=== PATIENT | male | born 1960 | race African-American/Black ===

== ENCOUNTER 2021-03-11 10:15 | Inpatient (IN) ==
[2021-03-11 11:05] LABS: Basophils % 0.3 %; Eosinophils # 0.1 K/mcL (0.0-0.6); Hematocrit 38.7 % (37.5-50.1); Hemoglobin 12.9 g/dL (12.9-16.9); Immature Granulocytes % 0.5 % (0-4); Lymphocytes # 1.9 K/mcL (0.6-4.6); Lymphocytes % 31.1 %; Mean Corpuscular HGB Conc 33.3 g/dL (31.6-35.5); Mean Corpuscular Hemoglobin 25.2 pg (28.0-33.3); Mean Corpuscular Volume 75.6 fL (83.0-100.0); Monocytes # 0.5 K/mcL (0.0-1.3); Monocytes % 8.1 %; Neutrophils # 3.5 K/mcL (1.6-8.9); Platelet Count 273 K/mcL (140-400); Red Blood Count 5.12 M/mcL (4.19-5.50); Red Cell Distribution Width 13.2 % (11.5-14.5)
[2021-03-11 11:17] LABS: INR 1.1; Prothrombin Time 13.1 Seconds (9.4-12.1)
[2021-03-11 11:27] LABS: BUN/Creatinine Ratio 23 (6-26); Blood Urea Nitrogen 14 mg/dL (6-20); Calcium 9.2 mg/dL (8.6-10.3); Carbon Dioxide 27 mEq/L (23-29); Chloride 104 mEq/L (98-107); Glucose 129 mg/dL (70-105); Osmolality,Calculated 284 (280-300); Potassium 3.5 mEq/L (3.5-5.1); Sodium 136 mEq/L (136-145); Troponin I < 0.03 ng/mL (< 0.04); eGFR For African Americans > 60 (> 60); eGFR For Non-African Americans > 60 (> 60)
[2021-03-11] MEDS ORDERED: Isovue-370 500 ML BOTTLE IVP ONE (11:33)
[2021-03-11] MEDS ORDERED: Naloxone 0.4 MG/ML INJ IVP PRN (14:10)
[2021-03-11] MEDS ORDERED: MOM Conc 10 ML UD.LIQ PO PRN (14:15)
[2021-03-11] MEDS ORDERED: Mag Hydrox/Al Hydrox/Simeth 30 ML UDC PO PRN (14:15)
[2021-03-11] MEDS ORDERED: Ondansetron ODT 4 MG TAB.RAPDIS SL PRN (14:15)
[2021-03-11] MEDS ORDERED: Melatonin 3 MG TABLET PO PRN (14:15)
[2021-03-11] MEDS ORDERED: Perflutren Lipid Microsphere 1.3 ML in 0.9 % Sodium Chloride 8.7 ML IVP PRN (14:17)
[2021-03-11] MEDS ORDERED: *HR* Dextrose 50 % in Water (Vial) 50 ML VIAL IVP PRN (14:18)
[2021-03-11] MEDS ORDERED: Dextrose Gel 15 GM/37.5 ML TUBE PO PRN ×2 (14:18)
[2021-03-11] MEDS ORDERED: D5% in Water 1,000 ML IVC PRN (14:18)
[2021-03-11] MEDS: Gabapentin 300 MG CAPSULE PO SCH ×2 (15:14→22:13)
[2021-03-11] MEDS: Spironolactone 25 MG TABLET PO SCH ×2 (15:15→22:13)
[2021-03-11] MEDS: Insulin LISPRO 300 UNITS/3 ML VIAL SUBQ SCH ×2 (16:29→22:14)
[2021-03-11] MEDS ORDERED: Morphine Sulfate 2 MG/ML SYRINGE IVP ONE (22:00)
[2021-03-12 01:09] LABS: Hematocrit 36.3 % (37.5-50.1); Hemoglobin 12.1 g/dL (12.9-16.9); Mean Corpuscular HGB Conc 33.3 g/dL (31.6-35.5); Mean Corpuscular Hemoglobin 25.3 pg (28.0-33.3); Mean Corpuscular Volume 75.8 fL (83.0-100.0); Mean Platelet Volume 10.2 fL (9.4-12.4); Platelet Count 251 K/mcL (140-400); Red Blood Count 4.79 M/mcL (4.19-5.50); Red Cell Distribution Width 13.3 % (11.5-14.5); White Blood Count 6.1 K/mcL (4.3-11.1)
[2021-03-12 01:28] LABS: Alanine Aminotransferase 40 Units/L (7-52); Albumin 3.5 g/dL (3.5-5.7); Alkaline Phosphatase 74 Units/L (34-104); Aspartate Amino Transferase 10 Units/L (13-39); BUN/Creatinine Ratio 25 (6-26); Bilirubin,Total 0.3 mg/dL (0.3-1.0); Blood Urea Nitrogen 16 mg/dL (6-20); Carbon Dioxide 24 mEq/L (23-29); Chloride 103 mEq/L (98-107); Chol/HDL Ratio 5.6 (0-4.9); Cholesterol 129 mg/dL (< 200); Globulin 3.5 g/dL (2.4-3.5); Glucose 187 mg/dL (70-105); HDL Cholesterol 23 mg/dL (40-59); LDL Cholesterol,Calculated 71 mg/dL (< 100); Osmolality,Calculated 290 (280-300); Potassium 3.5 mEq/L (3.5-5.1); Sodium 137 mEq/L (136-145); Triglycerides 173 mg/dL (< 150); eGFR For African Americans > 60 (> 60); eGFR For Non-African Americans > 60 (> 60)
[2021-03-12] MEDS ORDERED: Morphine Sulfate 2 MG/ML SYRINGE IVP PRN (02:00)
[2021-03-12] MEDS ORDERED: Regadenoson 0.4 MG/5 ML SYRINGE IVP ONE (06:03)
[2021-03-12] MEDS: Aspirin 81 MG TAB.CHEW PO SCH (09:04)
[2021-03-12] MEDS: Gabapentin 300 MG CAPSULE PO SCH ×3 (09:04→21:31)
[2021-03-12] MEDS: amLODIPine 5 MG TABLET PO SCH (09:05)
[2021-03-12] MEDS: Spironolactone 25 MG TABLET PO SCH ×4 (09:05→21:30)
[2021-03-12] MEDS: Insulin LISPRO 300 UNITS/3 ML VIAL SUBQ SCH ×4 (09:07→21:37)
[2021-03-12 13:56] LABS: Estimated Average Glucose 166 mg/dl; Hemoglobin A1C 7.4 %
[2021-03-12] MEDS: carvediloL 6.25 MG TABLET PO SCH (16:15)
[2021-03-13 06:55] LABS: Hematocrit 38.2 % (37.5-50.1); Hemoglobin 12.7 g/dL (12.9-16.9); Mean Corpuscular HGB Conc 33.2 g/dL (31.6-35.5); Mean Corpuscular Hemoglobin 25.2 pg (28.0-33.3); Mean Corpuscular Volume 75.9 fL (83.0-100.0); Mean Platelet Volume 10.2 fL (9.4-12.4); Platelet Count 278 K/mcL (140-400); Red Blood Count 5.03 M/mcL (4.19-5.50); Red Cell Distribution Width 13.4 % (11.5-14.5); White Blood Count 6.5 K/mcL (4.3-11.1)
[2021-03-13] MEDS: Insulin LISPRO 300 UNITS/3 ML VIAL SUBQ SCH ×4 (06:57→20:09)
[2021-03-13 07:24] LABS: BUN/Creatinine Ratio 22 (6-26); Blood Urea Nitrogen 14 mg/dL (6-20); Calcium 9.4 mg/dL (8.6-10.3); Carbon Dioxide 25 mEq/L (23-29); Chloride 105 mEq/L (98-107); Glucose 125 mg/dL (70-105); Osmolality,Calculated 288 (280-300); Potassium 3.7 mEq/L (3.5-5.1); Sodium 138 mEq/L (136-145); eGFR For African Americans > 60 (> 60); eGFR For Non-African Americans > 60 (> 60)
[2021-03-13] MEDS: carvediloL 6.25 MG TABLET PO SCH ×2 (08:03→17:16)
[2021-03-13] MEDS: Gabapentin 300 MG CAPSULE PO SCH ×3 (08:03→20:05)
[2021-03-13] MEDS: amLODIPine 5 MG TABLET PO SCH (08:03)
[2021-03-13] MEDS: Aspirin 81 MG TAB.CHEW PO SCH (08:03)
[2021-03-13] MEDS: Spironolactone 25 MG TABLET PO SCH ×4 (08:03→20:06)
[2021-03-13] MEDS ORDERED: Nitroglycerin 1,000 MCG/5 ML VIAL IV ONE (08:42)
[2021-03-13] MEDS ORDERED: *HR* Midazolam HCl 2 MG/2 ML VIAL ONE ×2 (08:42→09:31)
[2021-03-13] MEDS ORDERED: *HR* Heparin 10,000 UNIT/10 ML VIAL ONE ×2 (08:42→09:30)
[2021-03-13] MEDS ORDERED: Heparin 1,000 UNITS/500 mL 500 ML ONE ×2 (08:42→10:13)
[2021-03-13] MEDS ORDERED: 0.9 % Sodium Chloride 2,000 ML ONE (08:42)
[2021-03-13] MEDS ORDERED: ISOVUE-370 200 ML INFUS..BTL ONE ×2 (08:42→09:50)
[2021-03-13] MEDS ORDERED: *HR* FentaNYL (PF) 100 MCG/2 ML VIAL ONE ×2 (08:43→10:21)
[2021-03-13] MEDS ORDERED: *HR* Ticagrelor 90 MG TABLET ONE (09:26)
[2021-03-13] MEDS: 0.9 % Sodium Chloride 1,000 ML IVC SCH ×2 (11:21→20:05)
[2021-03-13] MEDS ORDERED: *HR* Ticagrelor 90 MG TABLET PO SCH (21:00)
[2021-03-14 02:17] LABS: Hematocrit 35.5 % (37.5-50.1); Hemoglobin 11.9 g/dL (12.9-16.9)
[2021-03-14 02:35] LABS: BUN/Creatinine Ratio 23 (6-26); Blood Urea Nitrogen 15 mg/dL (6-20); eGFR For African Americans > 60 (> 60); eGFR For Non-African Americans > 60 (> 60)
[2021-03-14] MEDS: 0.9 % Sodium Chloride 1,000 ML IVC SCH (05:31)
[2021-03-14 07:37] VITALS: BP 164/86
[2021-03-14] MEDS: Insulin LISPRO 300 UNITS/3 ML VIAL SUBQ SCH (09:09)
[2021-03-14] MEDS: Aspirin 81 MG TAB.CHEW PO SCH (09:12)
[2021-03-14] MEDS: amLODIPine 5 MG TABLET PO SCH (09:12)
[2021-03-14] MEDS: Spironolactone 25 MG TABLET PO SCH (09:13)
[2021-03-14] MEDS: carvediloL 6.25 MG TABLET PO SCH (09:13)
[2021-03-14] MEDS: Gabapentin 300 MG CAPSULE PO SCH (09:13)
== END 2021-03-14 11:11 | disposition home or self-care (01) | DRG 247 ==
LOC: EMEROOARM 10:15 → 3BNU 10:15 → SUATTDRO 13:45 → 3BNU 14:49
PROVIDERS: ADMIT Internal Medicine; ATTEND Nurse Practitioner

== ENCOUNTER 2021-05-20 08:54 | Observation (INO) ==
[2021-05-20] MEDS ORDERED: Nitroglycerin 0.4 MG TAB.SUBL SL ONE (09:18)
[2021-05-20 09:20] LABS: Eosinophils # 0.1 K/mcL (0.0-0.6); Eosinophils % 1.8 %; Hematocrit 32.1 % (37.5-50.1); Hemoglobin 10.7 g/dL (12.9-16.9); Immature Granulocytes % 0.4 % (0-4); Lymphocytes # 1.8 K/mcL (0.6-4.6); Lymphocytes % 26.2 %; Mean Corpuscular HGB Conc 33.3 g/dL (31.6-35.5); Mean Corpuscular Hemoglobin 23.8 pg (28.0-33.3); Mean Corpuscular Volume 71.3 fL (83.0-100.0); Mean Platelet Volume 9.6 fL (9.4-12.4); Monocytes # 0.6 K/mcL (0.0-1.3); Monocytes % 8.2 %; Neutrophils # 4.3 K/mcL (1.6-8.9); Platelet Count 222 K/mcL (140-400); Red Cell Distribution Width 13.4 % (11.5-14.5); Segmented Neutrophils % 63.4 %; White Blood Count 6.7 K/mcL (4.3-11.1)
[2021-05-20] MEDS: Nitroglycerin 0.4 MG TAB.SUBL SL PRN ×3 (09:20→09:35)
[2021-05-20 09:38] LABS: INR 1.2; Prothrombin Time 13.6 Seconds (9.4-12.1)
[2021-05-20 09:41] LABS: Activated Partial Thrombo Time 35.4 Seconds (26.0-36.0); BUN/Creatinine Ratio 23 (6-26); Blood Urea Nitrogen 11 mg/dL (6-20); Calcium 9.1 mg/dL (8.6-10.3); Carbon Dioxide 24 mEq/L (23-29); Chloride 108 mEq/L (98-107); Glucose 120 mg/dL (70-105); Osmolality,Calculated 289 (280-300); Potassium 3.3 mEq/L (3.5-5.1); Sodium 139 mEq/L (136-145); eGFR For African Americans > 60 (> 60); eGFR For Non-African Americans > 60 (> 60)
[2021-05-20 09:42] LABS: Troponin I < 0.03 ng/mL (< 0.04)
[2021-05-20] MEDS ORDERED: *HR* FentaNYL (PF) 100 MCG/2 ML VIAL IVP ONE (09:56)
[2021-05-20] MEDS ORDERED: Naloxone 0.4 MG/ML INJ IVP PRN (10:30)
[2021-05-20] MEDS ORDERED: carvediloL 6.25 MG TABLET PO SCH (10:38)
[2021-05-20] MEDS ORDERED: D5% in Water 1,000 ML IVC PRN (10:39)
[2021-05-20] MEDS ORDERED: *HR* Dextrose 50 % in Water (Vial) 50 ML VIAL IVP PRN (10:39)
[2021-05-20] MEDS ORDERED: Dextrose Gel 15 GM/37.5 ML TUBE PO PRN ×2 (10:39)
[2021-05-20 11:26] LABS: Magnesium 1.5 mg/dL (1.6-2.6)
[2021-05-20] MEDS ORDERED: Perflutren Lipid Microsphere 1.3 ML in 0.9 % Sodium Chloride 8.7 ML IVP PRN (11:37)
[2021-05-20] MEDS ORDERED: *HR* Rivaroxaban 10 MG TABLET PO SCH (11:43)
[2021-05-20 12:50] LABS: Thyroid Stimulating Hormone < 0.010 mcIU/mL (0.340-5.600)
[2021-05-20] MEDS: Insulin LISPRO 300 UNITS/3 ML VIAL SUBQ SCH ×3 (13:37→15:52)
[2021-05-20] MEDS ORDERED: carvediloL 25 MG TABLET PO ONE (13:43)
[2021-05-20 15:47] VITALS: TEMP 98.8
[2021-05-20 15:54] LABS: Triiodothyronine (T3) Total 419 ng/dL (87-178)
[2021-05-20] MEDS ORDERED: carvediloL 25 MG TABLET PO SCH (17:00)
[2021-05-20] MEDS ORDERED: *HR* HYDROcodone/Acet 5/325 mg TABLET PO ONE (20:46)
[2021-05-20] MEDS ORDERED: Gabapentin 300 MG CAPSULE PO ONE (21:00)
[2021-05-20] MEDS ORDERED: Insulin LISPRO 300 UNITS/3 ML VIAL SUBQ SCH (21:00)
[2021-05-21 00:23] VITALS: BP 166/94; PULSE 102; O2SAT 99
[2021-05-21 05:42] LABS: Basophils % 0.1 %; Eosinophils # 0.1 K/mcL (0.0-0.6); Eosinophils % 1.1 %; Hematocrit 30.4 % (37.5-50.1); Hemoglobin 9.9 g/dL (12.9-16.9); Immature Granulocytes % 0.5 % (0-4); Lymphocytes # 2.2 K/mcL (0.6-4.6); Lymphocytes % 27.1 %; Mean Corpuscular HGB Conc 32.6 g/dL (31.6-35.5); Mean Corpuscular Hemoglobin 23.6 pg (28.0-33.3); Mean Corpuscular Volume 72.6 fL (83.0-100.0); Mean Platelet Volume 9.9 fL (9.4-12.4); Monocytes # 0.7 K/mcL (0.0-1.3); Monocytes % 8.2 %; Platelet Count 208 K/mcL (140-400); Red Blood Count 4.19 M/mcL (4.19-5.50); Red Cell Distribution Width 13.5 % (11.5-14.5)
[2021-05-21 05:59] LABS: % Iron Saturation 10 % (20-55); BUN/Creatinine Ratio 24 (6-26); Blood Urea Nitrogen 13 mg/dL (6-20); Calcium 9.1 mg/dL (8.6-10.3); Carbon Dioxide 24 mEq/L (23-29); Chloride 108 mEq/L (98-107); Glucose 108 mg/dL (70-105); Iron 24 mcg/dL (65-175); Magnesium 1.9 mg/dL (1.6-2.6); Osmolality,Calculated 289 (280-300); Phosphorous 4.6 mg/dL (2.7-4.5); Potassium 3.4 mEq/L (3.5-5.1); Sodium 139 mEq/L (136-145); Transferrin 166 mg/dL (203-362); eGFR For African Americans > 60 (> 60); eGFR For Non-African Americans > 60 (> 60)
[2021-05-21 06:13] LABS: Ferritin 214 ng/mL (20-250)
[2021-05-21 06:20] LABS: Folate 9.2 ng/mL (3.0-16.0)
[2021-05-21] MEDS: Insulin LISPRO 300 UNITS/3 ML VIAL SUBQ SCH ×2 (07:27→12:21)
[2021-05-21] MEDS ORDERED: carvediloL 25 MG TABLET PO SCH (08:00)
[2021-05-21] MEDS ORDERED: *HR* HYDROcodone/Acet 5/325 mg TABLET PO PRN (08:05)
[2021-05-21] MEDS ORDERED: Nitroglycerin 0.4 MG TAB.SUBL SL PRN (08:05)
[2021-05-21] MEDS ORDERED: Aspirin 81 MG TAB.CHEW PO SCH (09:00)
[2021-05-21] MEDS ORDERED: Gabapentin 300 MG CAPSULE PO SCH (09:00)
[2021-05-21] MEDS ORDERED: amLODIPine 5 MG TABLET PO SCH (09:00)
[2021-05-21] MEDS ORDERED: methIMAzole 5 MG TABLET PO SCH (11:00)
== END 2021-05-21 13:22 | disposition home or self-care (01) ==
LOC: EMEROOARM 08:54 → CDU 08:54 → SUATTDRO 10:49 → CDU 12:38
PROVIDERS: ADMIT Internal Medicine; ATTEND Pharmacist